=== PATIENT | male | born 1970 | race Hispanic/Latino ===

== ENCOUNTER → 2020-09-16 | Outpatient (CLI) | payer OTHER ==
--- NOTE | 2020-09-16 12:20 | Diagnostic Imaging Report ---
Abdominal Ultrasound Clinical Diagnosis: Splenomegaly Comparison: None Technique: Multiple transaxial and longitudinal images were obtained through the abdomen with real time ultrasonography. A low-frequency curvilinear transducer was utilized. Multiple images were submitted for interpretation. Report: Liver: The liver measures 15.8 cm in the right midaxillary line. There are no focal masses or abnormal cysts. The echogenicity is increased. Spleen: The spleen measures 11.7 cm in the left mid axillary line. There are no focal masses or cysts. Gallbladder: The transverse diameter is normal cm. The wall measures 3 mm. There are multiple shadowing stones visualized. There is no sludge visualized. Sonographic Antonio's sign is negative. Biliary tree: There is no evidence of intra or extra hepatic biliary ductal dilatation. The common bile duct measures 3 mm. Portal vein: The portal vein measures 11.7 mm. There is hepatopedal flow. Hepatic veins: Unremarkable. Pancreas: The pancreatic tail is not well seen secondary to overlying bowel gas. The remainder of the pancreas shows normal echotexture and no focal masses or cysts. There is no pancreatic duct dilatation. Ascites: Absent Pleural Effusion: Absent Right kidney: The right kidney measures 12.1 x 5.4 x 5.9 cm. There is no evidence of hydronephrosis, mass, cyst. Left kidney: The left kidney measures 14 x 5.6 x 5.5 cm . There is no evidence of hydronephrosis, mass, cyst. IVC/Aorta: Partially seen segments demonstrate no abnormality. Impression: Borderline hepatomegaly with diffuse increase in liver echogenicity most suggestive of diffuse fatty infiltration. Clinical correlation is requested. The spleen is within normal limits. Signed by: Carlos Alberto Zapata MD on 09/16/2020 12:16 PM
== END ==
LOC: US 10:55
PROVIDERS: ATTEND Internal Medicine Gastroenterology
DX: R16.1 Splenomegaly, not elsewhere classified (principal)
CPT/HCPCS: 76700